=== PATIENT | female | born 1950 | race Caucasian/White ===

== ENCOUNTER 2018-02-06 14:25 | Emergency (ER) | payer OTHER ==
[~2018-02-06] VITALS: Ht 149.9 cm; Wt 58.1 kg
[~2018-02-06 14:25] MED LIST: AMOX1TAB12 PO; DAILY MULTIPLE1 EAC2 PO; FLOVENT13 G1 IH; LEVAQUIN750 MG PO; MOTRIN800 MG PO; PEPCID20 MG; PROMETHAZINE W118 ML PO; PROVENTIL0.5 ML/2.5 IH; PROVENTIL3 ML/2.5 M IH; PULMICORT1 MG/2 ML IH; RESPTHERAMACH; SYNTHROID75 MCG
[2018-02-06] MEDS ORDERED: MEDROLPACK PO (15:51)
== END 2018-02-06 16:09 | disposition home or self-care (01) ==
LOC: ER 14:25
DX: R20.0 Anesthesia of skin (principal); G51.0 Bell's palsy

== ENCOUNTER 2018-12-04 07:44 | Outpatient (CLI) | payer OTHER ==
[~2018-12-04 07:44] MED LIST changes: +MEDROLPACK PO
[2018-12-04] MEDS ORDERED: SYNTHROID88 MCG PO (13:20)
== END 2018-12-04 15:00 | disposition home or self-care (01) ==
LOC: LAB 07:44
DX: K64.4 Residual hemorrhoidal skin tags (principal); K62.5 Hemorrhage of anus and rectum; K64.1 Second degree hemorrhoids; K62.89 Other specified diseases of anus and rectum

== ENCOUNTER 2018-12-18 07:48 | Day surgery (SDC) | payer OTHER ==
[~2018-12-18 07:48] MED LIST changes: +SYNTHROID88 MCG PO
[2018-12-18] MEDS ORDERED: COLACE100 MG PO (13:26)
[2018-12-18] MEDS ORDERED: PERCOCET 5-3251 EACH PO (13:26)
== END 2018-12-18 20:00 | disposition home or self-care (01) ==
LOC: NUCLEAR → EDBD → CIR.AMB 07:48
DX: K64.8 Other hemorrhoids (principal)

== ENCOUNTER 2020-08-04 06:00 | Day surgery (SDC) | payer OTHER ==
[~2020-08-04 06:00] MED LIST changes: +ACID REDUCER20 M1 PO; +COLACE100 MG PO; +MAGNESIUM250 M1 PO; +PERCOCET 5-3251 EACH PO; +SYNTHROID75 MCG PO; +VITAL-D RX TAB1 EACH PO
[2020-08-04] MEDS ORDERED: ACETAMINOPHEN500 M2 PO (09:10)
[2020-08-04] MEDS ORDERED: DICLOFENAC POTA50 MG PO (09:10)
== END 2020-08-04 16:25 | disposition home or self-care (01) ==
LOC: CIR.AMB 06:00
PROVIDERS: ATTEND Surgery
DX: K60.3 Anal fistula (principal); Z20.822 Contact with and (suspected) exposure to COVID-19

== ENCOUNTER 2020-12-08 07:08 | Day surgery (SDC) | payer OTHER ==
[~2020-12-08 07:08] MED LIST changes: +ACETAMINOPHEN500 M2 PO; +DICLOFENAC POTA50 MG PO; +VITAMIN D PO
[2020-12-08] MEDS ORDERED: ULTRACET PO (13:38)
[2020-12-08] MEDS ORDERED: COLACE100 MG PO ×2 (13:38→16:15)
== END 2020-12-08 22:45 | disposition home or self-care (01) ==
LOC: CIR.AMB 07:08
PROVIDERS: ATTEND Surgery
DX: K60.3 Anal fistula (principal); Z20.822 Contact with and (suspected) exposure to COVID-19

== ENCOUNTER 2021-08-15 10:51 | Outpatient (CLI) | payer OTHER ==
[~2021-08-15 10:51] MED LIST changes: +ULTRACET PO
== END 2021-08-15 12:45 | disposition home or self-care (01) ==
LOC: LAB 10:51
PROVIDERS: ATTEND Specialist
DX: L72.0 Epidermal cyst (principal); L02.213 Cutaneous abscess of chest wall

== ENCOUNTER 2021-10-09 06:00 | Day surgery (SDC) | payer OTHER ==
[~2021-10-09 06:00] MED LIST changes: +BACLOFEN10 MG PO; +CELEBREX50 MG PO; +PEPCID AC10 MG PO
== END 2021-10-09 12:12 | disposition home or self-care (01) ==
LOC: CIR.AMB 06:00
PROVIDERS: ATTEND Specialist
DX: L72.0 Epidermal cyst (principal); Z20.822 Contact with and (suspected) exposure to COVID-19; E03.9 Hypothyroidism, unspecified

== ENCOUNTER 2022-12-03 09:58 | Emergency (ER) | payer OTHER ==
[~2022-12-03] VITALS: Ht 149.9 cm; Wt 60.8 kg
== END 2022-12-03 12:48 | disposition home or self-care (01) ==
LOC: ER 09:58
DX: M12.562 Traumatic arthropathy, left knee (principal); Z88.8 Allergy status to other drugs, medicaments and biological substances; Z85.3 Personal history of malignant neoplasm of breast; E03.9 Hypothyroidism, unspecified